=== PATIENT | female | born 1980 | race Two or more races ===

== ENCOUNTER 2023-08-19 11:16 | Inpatient (IN) | payer OTHER ==
[2023-08-19 11:32] VITALS: BMI 23.2
[2023-08-19] MEDS ORDERED: BENZONATATE 200 MG CAPSULE PO PRN (12:53)
[2023-08-19] MEDS ORDERED: METHOCARBAMOL 500 MG TABLET PO PRN (12:53)
[2023-08-19] MEDS ORDERED: NALOXONE HCL (KLOXXADO) 8 MG SPRAY NS PRN (12:53)
[2023-08-19] MEDS ORDERED: NALOXONE HCL 0.4 MG/ML VIAL IM PRN (12:53)
[2023-08-19] MEDS ORDERED: BISMUTH SUBSALICYLATE 524 MG/30 ML PO PRN (12:53)
[2023-08-19] MEDS ORDERED: POLYETHYLENE GLYCOL (HEALTHYLAX) 3350 17 GM PACKET PO PRN (12:53)
[2023-08-19] MEDS ORDERED: MAG HYDROX/AL HYDROX/SIMETH 30 ML UNIT-DOSE CUP PO PRN (12:53)
[2023-08-19] MEDS ORDERED: IBUPROFEN 400 MG TABLET (FP) PO PRN (12:53)
[2023-08-19] MEDS ORDERED: IBUPROFEN 600 MG TABLET (FP) PO PRN (12:53)
[2023-08-19] MEDS ORDERED: guaiFENesin 600 MG TABLET.ER (FP) PO PRN (12:53)
[2023-08-19] MEDS ORDERED: ONDANSETRON *ODT* 4 MG TABLET SL PRN (12:53)
[2023-08-19] MEDS ORDERED: LOPERAMIDE HCL 2 MG CAPSULE PO PRN (12:53)
[2023-08-19] MEDS ORDERED: DICYCLOMINE HCL 10 MG CAPSULE PO PRN (12:53)
[2023-08-19] MEDS ORDERED: BENZOCAINE/MENTHOL (CHLORASEPTIC ) LOZENGE MM PRN (12:53)
[2023-08-19] MEDS ORDERED: ACETAMINOPHEN 325 MG TABLET (FP) PO PRN (12:53)
[2023-08-19] MEDS ORDERED: MAGNESIUM HYDROX 2400MG/30ML ORAL SUSPENSION 30 ML CUP PO PRN (12:53)
[2023-08-19] MEDS ORDERED: hydrOXYzine PAMOATE 25 MG CAPSULE (FP) PO PRN (12:53)
[2023-08-19] MEDS ORDERED: methaDONE HCL 10 MG TABLET (FOR DETOX USE ONLY) ONE (13:38)
[2023-08-19] MEDS: NICOTINE 14 MG/24 HOURS TOPICAL PATCH TD SCH (13:44)
[2023-08-19] MEDS: PRENATAL VITAMINS W/ FOLIC ACID TABLET (FP) PO SCH (13:44)
[2023-08-19] MEDS ORDERED: methaDONE HCL 10 MG TABLET (FOR DETOX USE ONLY) PO ONE (13:45)
[2023-08-19] MEDS: cloNIDine HCL 0.1 MG TABLET PO PRN (17:13)
[2023-08-19] MEDS: MELATONIN 5 MG TABLETS PO SCH (22:17)
[2023-08-19] MEDS: THIAMINE HCL 100 MG TABLET (FP) PO SCH (22:17)
[2023-08-20] MEDS: NICOTINE 14 MG/24 HOURS TOPICAL PATCH TD SCH (10:09)
[2023-08-20] MEDS: PRENATAL VITAMINS W/ FOLIC ACID TABLET (FP) PO SCH (10:09)
[2023-08-20 10:42] LABS: HEMATOCRIT 36.7 % (32.4-45.2); HEMOGLOBIN 11.7 GM/dL (10.7-15.3); MCH 28.7 pg (25.7-33.7); MCHC 31.9 g/dl (32.0-36.0); MEAN CELL VOLUME 90.2 fl (80-96); MEAN PLT VOLUME 7.5 fl (7.5-11.1); PLATELET COUNT 308 10^3/uL (134-434); RBC 4.07 M/mm3 (3.60-5.2); RDW 14.6 % (11.6-15.6); WHITE BLOOD COUNT 5.4 K/mm3 (4.0-10.0)
[2023-08-20 12:08] LABS: POTASSIUM 3.9 mmol/L (3.5-5.1)
[2023-08-20 12:11] LABS: ALBUMIN 3.3 g/dl (3.4-5.0)
[2023-08-20 12:12] LABS: BLOOD UREA NITROGEN 12.7 mg/dL (7-18)
[2023-08-20 12:14] LABS: CREATININE 0.8 mg/dL (0.55-1.3)
[2023-08-20 12:16] LABS: BILIRUBIN,TOTAL 0.2 mg/dL (0.2-1); TOT PROT 6.8 g/dl (6.4-8.2)
[2023-08-20] MEDS: diazePAM 5 MG TABLET PO PRN ×2 (17:52→21:55)
[2023-08-20] MEDS: MELATONIN 5 MG TABLETS PO SCH (21:54)
[2023-08-20] MEDS: THIAMINE HCL 100 MG TABLET (FP) PO SCH (21:54)
[2023-08-20] MEDS: cloNIDine HCL 0.1 MG TABLET PO PRN (21:55)
[2023-08-21] MEDS ORDERED: methaDONE HCL 10 MG TABLET (FOR DETOX USE ONLY) PO ONE (10:00)
[2023-08-21] MEDS: PRENATAL VITAMINS W/ FOLIC ACID TABLET (FP) PO SCH (10:32)
[2023-08-21] MEDS: NICOTINE 14 MG/24 HOURS TOPICAL PATCH TD SCH (10:32)
[2023-08-21] MEDS ORDERED: MAGNESIUM HYDROX 2400MG/30ML ORAL SUSPENSION 30 ML CUP PO ONE (11:57)
[2023-08-21] MEDS: DOCUSATE SODIUM 100 MG CAPSULE (FP) PO SCH ×2 (13:32→21:53)
[2023-08-21 21:41] VITALS: RESP 18
[2023-08-21] MEDS: MELATONIN 5 MG TABLETS PO SCH (21:53)
[2023-08-21] MEDS: THIAMINE HCL 100 MG TABLET (FP) PO SCH (21:53)
[2023-08-22] MEDS: DOCUSATE SODIUM 100 MG CAPSULE (FP) PO SCH (05:41)
[2023-08-22 09:18] VITALS: BP 120/69; PULSE 66; TEMP 98
[2023-08-22] MEDS: PRENATAL VITAMINS W/ FOLIC ACID TABLET (FP) PO SCH (09:23)
[2023-08-22] MEDS: NICOTINE 14 MG/24 HOURS TOPICAL PATCH TD SCH (09:24)
[2023-08-23] MEDS ORDERED: methaDONE HCL 10 MG TABLET (FOR DETOX USE ONLY) PO ONE (10:00)
== END 2023-08-22 10:09 | disposition left against medical advice (07) | DRG 770 ==
LOC: YASAS 11:16 → Y6N 14:29
PROVIDERS: ADMIT Allergy & Immunology; ATTEND Surgery
PROC: HZ2ZZZZ Detoxification Services for Substance Abuse Treatment (ICD-10-PCS; principal; 2023-08-19)
DX: F11.23 Opioid dependence with withdrawal (principal); F13.20 Sedative, hypnotic or anxiolytic dependence, uncomplicated; F14.20 Cocaine dependence, uncomplicated; F12.20 Cannabis dependence, uncomplicated; F17.210 Nicotine dependence, cigarettes, uncomplicated; F31.9 Bipolar disorder, unspecified; F60.9 Personality disorder, unspecified; F41.9 Anxiety disorder, unspecified; Z59.01 Sheltered homelessness
CPT/HCPCS: 36415; 80053; 80305; 81025; 85027; 86780; 87635; 87811; 93005; 93010